=== PATIENT | female | born 1940 | race Caucasian/White ===

== ENCOUNTER 2016-07-03 19:07 | Emergency (ER) | payer OTHER ==
[~2016-07-03] VITALS: Ht 170.2 cm; Wt 77.1 kg
[~2016-07-03 19:07] MED LIST: ALTACE10 M1 PO; ATENOLOL50 MG PO; ATORVASTATIN CA20 MG PO; DICLOFENAC SOD75 MG PO; Ecotrin PO; GOOD SENSE ASP325 MG PO; VYTORIN 10 MG-11 TAB PO
[2016-07-03] MEDS ORDERED: ATORVASTATIN CA40 M1 PO (19:15)
[2016-07-03] MEDS ORDERED: RANITIDINE HCL300 M1 PO (19:15)
[2016-07-03] MEDS ORDERED: PROCHLORPERAZIN10 MG PO (19:15)
[2016-07-03] MEDS ORDERED: ASPIRIN EC81 M1 PO (19:15)
[2016-07-03] MEDS ORDERED: LACTULOSE10 GM/153 PO (19:16)
--- NOTE | 2016-07-03 19:51 | ED GI/GU/ABDOMINAL COMPLAINT ---
History of Present Illness General Chief Complaint: Nausea, Vomiting, Diarrhea Stated Complaint: BIBA FOR VOMITING Source: patient, old records, EMS, [facility]10 Exam Limitations: unable to give history, not alert/orientated Vital Signs & Intake/Output Vital Signs & Intake/Output Vital Signs Date Time Temp Pulse Resp B/P Pulse O2 O2 Flow FiO2 Ox Delivery Rate 07/03 2122 98.1 94 18 118/63 94 Room Air 07/03 1919 Room Air 07/03 1910 97.8 105 18 154/78 94 Room Air Allergies Coded Allergies: NO KNOWN ALLERGIES (08/02/14) Reconcile Medications Aspirin (Ecotrin*) 81 MG TABLET.DR 1 TAB PO DAILY HEART/BLOOD (Reported) Atorvastatin Calcium 40 MG TABLET 1 TAB PO DAILY CHOLESTEROL (Reported) Lactulose 10 GRAM/15 ML SOLUTION 30 ML PO BID GI (Reported) Prochlorperazine Maleate 10 MG TABLET 1 TAB PO TID N/V (Reported) Ranitidine HCl 300 MG TABLET 1 TAB PO QPM GI (Reported) Triage Note: [facility] VOMIT[facility] LARGE AMOUNT OF COFFEE GROUND EMESIS ?2DAYS AGO AND FACILITY SAID RESULTS CAME BACK INCONCLUSIVE SO THEY SENT HER IN FOR EVAL. PT ARRIVES CONFUSED TO PERSON,PLACE AND TIME. PT C/O ABD PAIN. Triage Nurses Notes Reviewed? yes LMP (ages 10-50): post menopausal ? N Is pt currently ? No Onset: 3 days ago Duration: day(s):, intermittent Timing: recent history Quality/Severity: vomiting Location: unknown Radiation: no radiation Activities at Onset: unknown Prior Abdominal Problems: none Past Sexual History: Unobtainable at this time Modifying Factors: Worsens With: eating. Associated Symptoms: nausea/vomiting HPI: 2-3 days prior to admission senior living reports episodes of nausea vomiting. There is no reported fever chills chest pain cough shortness of breath headache dysuria rash bleeding. Past History Travel History Traveled to [place] past 21 day No Medical History Any Pertinent Medical History? see below for history Neurological: CVA Cardiovascular: hypertension, hyperlipidemia, myocardial infarction Blood Disorders: POLYCYTHEMIA VERA History of MRSA: No History of VRE: No History of CDIFF: No Surgical History Surgical History: non-contributory Psychosocial History Who do you live with Son Services at Home None What is your primary language Macedonian Tobacco Use: Never used Family History Family History, If Any: SISTER FH: lung cancer BROTHER FH: COPD (chronic obstructive pulmonary disease) Hx Contributory? No Review of Systems Review of Systems Constitutional: Reports: no symptoms. EENTM: Reports: no symptoms. Respiratory: Reports: no symptoms. Cardiovascular: Reports: no symptoms. GI: Reports: see HPI, nausea, vomiting. Genitourinary: Reports: no symptoms. Musculoskeletal: Reports: no symptoms. Skin: Reports: no symptoms. Neurological/Psychological: Reports: no symptoms. Hematologic/Endocrine: Reports: no symptoms. Immunologic/Allergic: Reports: no symptoms. All Other Systems: Reviewed and Negative Physical Exam Physical Exam General Appearance: well developed/nourished, alert, awake, anxious, obese Head: atraumatic, normal appearance Eyes: Bilateral: normal appearance, PERRL, EOMI, normal inspection. Ears, Nose, Throat, Mouth: hearing grossly normal, moist mucous membrane Neck: normal inspection, supple, full range of motion, normal alignment Respiratory: normal breath sounds, chest non-tender, no respiratory distress, quiet respiration, lungs clear Cardiovascular: regular rate/rhythm, normal peripheral pulses, norml femoral pulses equa Peripheral Pulses: 4+ carotid (R), 4+ carotid (L) Gastrointestinal: normal bowel sounds, soft, non-tender, no organomegaly Back: normal inspection, normal range of motion Extremities: normal range of motion, no ligament instability Neurologic/Psych: no motor/sensory deficits, awake, alert, disoriented x 3 Skin: intact, normal color, warm/dry Core Measures ACS in differential dx? No Severe Sepsis Present: No Septic Shock Present: No Progress Differential Diagnosis: gastritis, pancreatitis, UTI/pyelo Plan of Care: Orders Procedure Date/time Status URINALYSIS 07/03 1929 Complete LIPASE 07/03 1929 Complete COMPREHENSIVE METABOLIC PANEL 07/03 1929 Complete CBC WITHOUT DIFFERENTIAL 07/03 1929 Complete Current Medications Sig/Saira Start time Last Medication Dose Stop Time Status Admin Nitrofurantoin 100 MG ONCE ONE 07/03 2229 AC (Macrodantin 50MG 07/03 2230 Cap) Laboratory Tests 07/03/162132: Urinalysis LIGHT H, Urine Color YEL, Urine Clarity CLDY H, Urine pH 6.5, Ur Specific [place] 1.015, Urine Protein NEG, Urine Ketones TRACE H, Urine Nitrite NEG, Urine Bilirubin NEG, Urine Urobilinogen 2.0 H, Ur Leukocyte Esterase MOD H, Ur Microscopic SEDIMENT EXAMINED, Urine RBC 1-3, Urine WBC 50-75 H, Ur Epithelial Cells FEW, Urine Mucus FEW, Urine Hemoglobin SMALL H, Urine Glucose NEG 07/03/161947: Anion Gap 8, Estimated GFR > 60, BUN/Creatinine Ratio 34.0 H, Glucose 113 H, Calcium 9.5, Total Bilirubin 0.8, AST 27, ALT 36, Alkaline Phosphatase 138 H, Total Protein 6.6, Albumin 3.6, Globulin 3.0, Albumin/Globulin Ratio 1.2, Lipase 106, CBC w Diff NO MAN DIFF REQ, RBC 5.18, MCV 84.7, MCH 27.7, RDW 14.7 H, MPV 7.9, Gran % 80.1 H, Lymphocytes % 14.2 L, Monocytes % 3.8, Eosinophils % 1.2, Basophils % 0.7, Absolute Granulocytes 9.6 H, Absolute Lymphocytes 1.7, Absolute Monocytes 0.5, Absolute Eosinophils 0.1, Absolute Basophils 0.1, PUBS MCHC 32.7 L Diagnostic Imaging: Viewed by Me: Radiology Read. Discussed w/RAD: Radiology Read. CXR Impression: no acute abnormality Initial ED EKG: none Departure Departure Time of Disposition: 2224 Disposition: HOME OR SELF CARE Condition: Stable Clinical Impression Primary Impression: Nausea and vomiting in adult Secondary Impressions: Urinary tract infection Qualifiers: Urinary tract infection type: site unspecified Hematuria presence: without hematuria Qualified Code: N39.0 - Urinary tract infection, site not specified Referrals: VALARIE OQUENDO,NILA Roy (PCP/Family) Departure Forms: Customer Survey General Discharge Information
[2016-07-03 19:59] LABS: ABSOLUTE BASOPHIL COUNT 0.1 /CUMM (0.0-0.2); ABSOLUTE EOSINOPHIL COUNT 0.1 /CUMM (0.0-0.7); ABSOLUTE GRANULOCYTE CT 9.6 /CUMM (1.4-6.5); ABSOLUTE LYMPH COUNT 1.7 /CUMM (1.2-3.4); ABSOLUTE MONOCYTE COUNT 0.5 /CUMM (0.10-0.60); BASOPHIL % 0.7 % (0.0-2.0); EOSINOPHIL % 1.2 % (0-5); GRANULOCYTE % 80.1 % (42.2-75.2); HEMATOCRIT 43.8 % (37-47); MEAN CORPUSCULAR HGB 27.7 PG (27.0-31.0); MEAN CORPUSCULAR HGB CONC 32.7 G/DL (33.0-37.0); MEAN CORPUSCULAR VOLUME 84.7 FL (81.0-99.0); MEAN PLATELET VOLUME 7.9 FL (7.4-10.4); PLATELET COUNT 234 /CUMM (130-400); RBC DISTRIBUTION WIDTH 14.7 % (11.5-14.5); RED BLOOD CELL CT 5.18 /CUMM (4.20-5.40); WHITE BLOOD CELL COUNT 11.9 /CUMM (4.8-10.8)
--- NOTE | 2016-07-03 20:05 | RADIOLOGY REPORT ---
EXAMINATION: XR PORTABLE CHEST CLINICAL INFORMATION: Cough, pneumonia COMPARISON: August 02, 2014 chest x-ray TECHNIQUE: Portable AP view of the chest was obtained. FINDINGS: The cardiomediastinal silhouette and pulmonary vascularity are within normal limits. Atherosclerotic calcifications of aortic arch noted. Lungs are clear. No pleural effusions or pneumothorax. IMPRESSION: No acute cardiopulmonary findings.
[2016-07-03 21:23] VITALS: BP 118/63
== END 2016-07-03 22:51 ==
LOC: ERH 19:07
PROVIDERS: Emergency Medicine
DX: N39.0 Urinary tract infection, site not specified (principal); R11.2 Nausea with vomiting, unspecified
CPT/HCPCS: 81001; J3101